=== PATIENT | male | born 1965 | race Caucasian/White ===

== ENCOUNTER → 2016-04-12 | Outpatient (CLI) | payer OTHER ==
[~2016-04-12] VITALS: Ht 180.3 cm; Wt 116.8 kg
[~2016-04-12] MED LIST: ATOR1TAB21 PO; LOSA50TA20 PO; METF1000 PO; NS 1,000 ML IV SCH; PROPOFOL 200 MG/20 ML VIAL As Ordered ONE
--- NOTE | 2016-04-12 11:50 | ROOR ---
Patient Name: Jose E Miller Procedure Date: 04/12/2016 11:31 AM Date of : 1965 Age: 50 Room: [facility] Gender: Male Note Status: Finalized Procedure: Colonoscopy Indications: Screening for colorectal malignant neoplasm Providers: Robert GABRIEL MD Referring MD: TOLU IVERSON MD Requesting Provider: Medicines: Monitored Anesthesia Care Complications: No immediate complications. Procedure: Pre-Anesthesia Assessment: - The heart rate, respiratory rate, oxygen saturations, blood pressure, adequacy of pulmonary ventilation, and response to care were monitored throughout the procedure. The Colonoscope was introduced through the anus and advanced to the cecum, identified by appendiceal orifice and ileocecal valve. The colonoscopy was performed without difficulty. The patient tolerated the procedure well. The quality of the bowel preparation was poor. Findings: The perianal and digital rectal examinations were normal. (EXAM: Complete, PREP: Suboptimal) Multiple medium-mouthed diverticula were found in the sigmoid colon. The exam was otherwise without abnormality on direct and retroflexion views. Impression: - (EXAM: Complete, PREP: Suboptimal) - Diverticulosis in the sigmoid colon. - The examination was otherwise normal on direct and retroflexion views. - No specimens collected. Recommendation: - Repeat colonoscopy in 2 years because the bowel preparation was suboptimal. Robert Gabriel MD Robert GABRIEL MD 04/12/2016 11:50:38 AM This report has been signed electronically. Number of Addenda: 0 Note Initiated On: 04/12/2016 11:31 AM Estimated Blood Loss: Estimated blood loss: none.
[2016-04-12 12:15] VITALS: BP 156/95
== END | disposition home or self-care (01) ==
LOC: M OPP 09:04
PROVIDERS: ATTEND Internal Medicine Gastroenterology
DX: Z12.11 Encounter for screening for malignant neoplasm of colon (principal); I10 Essential (primary) hypertension; K57.30 Diverticulosis of large intestine without perforation or abscess without bleeding; E78.00 Pure hypercholesterolemia, unspecified; E11.9 Type 2 diabetes mellitus without complications; R06.83 Snoring; G47.30 Sleep apnea, unspecified; E66.9 Obesity, unspecified; Z79.84 Long term (current) use of oral hypoglycemic drugs; Z79.899 Other long term (current) drug therapy

== ENCOUNTER → 2017-04-19 | Outpatient (CLI) | payer OTHER | LOC: M WUC 10:10 | DX: R04.2 Hemoptysis (principal) | CPT/HCPCS: 71046 ==

== ENCOUNTER 2018-05-31 06:57 | Day surgery (SDC) | payer OTHER ==
[~2018-05-31] VITALS: Ht 180.3 cm; Wt 118.8 kg
[~2018-05-31 06:57] MED LIST changes: +GLIP5TAB20 PO; +LOSA100T8 PO; -LOSA50TA20 PO; +LOSA50TA88 PO; -METF1000 PO; +METF10004 PO; -NS 1,000 ML IV SCH; -PROPOFOL 200 MG/20 ML VIAL As Ordered ONE
[2018-05-31] MEDS ORDERED: NS 1,000 ML IV ONE (07:30)
[2018-05-31] MEDS ORDERED: PROPOFOL 200 MG/20 ML VIAL As Ordered ONE (08:14)
--- NOTE | 2018-05-31 08:31 | ROOR ---
Patient Name: Jose E Miller Procedure Date: 05/31/2018 8:04 AM Date of : 1965 Age: 52 Room: [facility] Gender: Male Note Status: Finalized Procedure: Colonoscopy Indications: Screening for colorectal malignant neoplasm, Screening for colorectal malignant neoplasm, inadequate bowel prep on last colonoscopy (more recent than 10 years ago) Providers: Robert GABRIEL MD Referring MD: TOLU IVERSON MD Requesting Provider: Medicines: Monitored Anesthesia Care Complications: No immediate complications. Procedure: Pre-Anesthesia Assessment: - The heart rate, respiratory rate, oxygen saturations, blood pressure, adequacy of pulmonary ventilation, and response to care were monitored throughout the procedure. The Colonoscope was introduced through the anus and advanced to 8 cm into the ileum. The colonoscopy was performed without difficulty. The patient tolerated the procedure well. The quality of the bowel preparation was adequate. Findings: The perianal and digital rectal examinations were normal. A 8 mm polyp was found in the rectum (benign-appearing lesion). The polyp was semi-sessile. The polyp was removed with a cold snare. Resection and retrieval were complete. To prevent bleeding after the polypectomy, one hemostatic clip was successfully placed. A 4 mm polyp was found in the sigmoid colon. The polyp was flat. The polyp was removed with a cold snare. Resection and retrieval were complete. Multiple diverticula were found in the sigmoid colon. Small Internal Hemorrhoids. The terminal ileum appeared normal. Impression: - One benign appearing 8 mm polyp in the rectum, removed with a cold snare. Resected and retrieved. Clip was placed. - One 4 mm polyp in the sigmoid colon, removed with a cold snare. Resected and retrieved. - Moderate diverticulosis in the sigmoid colon. - Small Internal Hemorrhoids. Recommendation: - Repeat colonoscopy in 5 years for adenoma surveillance. Robert Gabriel MD Robert GABRIEL MD 05/31/2018 8:30:56 AM Electronically signed by Robert GABRIEL MD Number of Addenda: 0 Note Initiated On: 05/31/2018 8:04 AM Estimated Blood Loss: Estimated blood loss: none.
[2018-05-31 08:50] VITALS: BP 169/88
== END 2018-05-31 09:01 | disposition home or self-care (01) ==
LOC: M OPP 06:57
PROVIDERS: ATTEND Internal Medicine Gastroenterology
DX: D12.8 Benign neoplasm of rectum (principal); K63.5 Polyp of colon; K57.30 Diverticulosis of large intestine without perforation or abscess without bleeding; K64.8 Other hemorrhoids; Z12.11 Encounter for screening for malignant neoplasm of colon

== ENCOUNTER → 2023-08-28 | Outpatient (CLI) | payer OTHER ==
[~2023-08-28] MED LIST changes: +LOSA50TA28 PO; -LOSA50TA88 PO
== END ==
LOC: M WUC 08:50
PROVIDERS: ATTEND Student in an Organized Health Care Education/Training Program
DX: R21 Rash and other nonspecific skin eruption (principal)

== ENCOUNTER 2023-12-28 06:48 | Day surgery (SDC) | payer OTHER ==
[~2023-12-28] VITALS: Ht 177.8 cm; Wt 116.6 kg
[~2023-12-28 06:48] MED LIST changes: +GLIP10TA18 PO; +INVO300T PO; +MULTTAB61 PO; +NS 250 ML IV ONE; +VALS320T2 PO
[2023-12-28] MEDS ORDERED: propofoL 200 MG/20 ML VIAL As Ordered ONE (08:00)
[2023-12-28 08:28] VITALS: TEMP 97.6
[2023-12-28 08:46] VITALS: BP 145/73; O2SAT 99
[2023-12-28] MEDS ORDERED: LIDOCAINE 2% 100MG/5ML SDV (FOR ANES.) As Ordered ONE (12:17)
== END 2023-12-28 08:51 | disposition home or self-care (01) ==
LOC: M OPP 06:48
PROVIDERS: ATTEND Internal Medicine Gastroenterology
DX: Z12.11 Encounter for screening for malignant neoplasm of colon (principal); K64.8 Other hemorrhoids; K57.30 Diverticulosis of large intestine without perforation or abscess without bleeding; Z86.0100 Personal history of colon polyps, unspecified; Z80.0 Family history of malignant neoplasm of digestive organs; E11.9 Type 2 diabetes mellitus without complications; I10 Essential (primary) hypertension; E78.00 Pure hypercholesterolemia, unspecified; G47.30 Sleep apnea, unspecified; Z79.84 Long term (current) use of oral hypoglycemic drugs; Z79.899 Other long term (current) drug therapy; Z90.89 Acquired absence of other organs